=== PATIENT | female | born 2005 | race African-American/Black ===

== ENCOUNTER 2023-10-14 13:31 | Emergency (ER) | payer OTHER, SELFPAY ==
[2023-10-14 14:21] LABS: Bilirubin Negative (Negative); Blood, Urine Negative (Negative); CAUTI Indications for Culture Pelvic or flank pain; Clarity Turbid (Clear); Glucose, Urine (Dipstick) Normal (Negative); Ketone, Urine Negative (Negative); Leukocyte 500 Leu/uL (Negative); Nitrite Negative (Negative); Protein, Urine (Dipstick) 20 mg/dL (Neg-Trace); Specific Gravity, Urine 1.026 (1.002-1.036); Urobilinogen Normal mg/dL (Less than 2); pH, Urine 7.5 (5.0-9.0)
[2023-10-14 14:31] LABS: Bacteria/HPF 2+ HPF (None Seen)
[2023-10-14 14:32] LABS: Trichomonas/HPF 1+ HPF (None Seen)
[2023-10-14 14:33] LABS: Unclassified Crystals None Seen HPF (None Seen); Urine Culture Reflex No No
[2023-10-14 14:56] LABS: Pregnancy Test - Urine (BHCG) Negative (Negative); Pregu Control Background? CLEAR/WHITE (CLR/WHITE); Pregu Control Bar Appear? YES (CONTROL BAR); Specific Gravity 1.026 (1.002-1.036)
[2023-10-14 20:16] LABS: Chlam.trachomatis by PCR,Urine DETECTED (NotDetected); GC N.gonorrhoeae PCR,UrineVOID Not Detected (NotDetected)
== END 2023-10-14 15:17 | disposition home or self-care (01) ==
LOC: ERS 13:31
DX: N39.0 Urinary tract infection, site not specified (principal); A59.01 Trichomonal vulvovaginitis
CPT/HCPCS: 81001; 81025; 87491; 87591; 99284